=== PATIENT | female | born 1975 | race African-American/Black ===

== ENCOUNTER 2017-11-14 02:05 | Emergency (ER) | payer SELFPAY ==
[~2017-11-14] VITALS: Ht 154.9 cm; Wt 47.6 kg
[~2017-11-14 02:05] MED LIST: ALBU8.5H6 IH; BENZ100C PO; FLUT1DIS3 IH; GUAI600T47 PO; PRED20TA PO
--- NOTE | 2017-11-14 02:30 | ED.ADGEN ---
Past History Past Medical History: Asthma, COPD, Other Past Surgical History: , Tubal ligation Smoking: Greater than 1 pack/day Alcohol Use: Occasionally Drug Use: None Adult General Chief Complaint Chief Complaint " I ve had this spot since March of last year... I used to squeeze it... and it seemed to get better.. but this last two weeks it does not get better squeezing the stuff out... and nothing come s out now.. and it much more swollen.. and tender..." HPI HPI Patient is a 42 year old female who presents with above hx and complaints of Lt facial abscess. Area is 2 cm x 2 cm Lt facial area. Patient normally follows at [facility] for care. Patient does not remember last tetanus by her record she carries over the last one was in 1998. Patient denies any history immunosuppression. Patient denies any history of significant ill contacts. Patient has been squeezing area but has not been able to express any pus in the areas become more swollen and tender. No adenopathy at ankle jaw. Pt. not in waiting room, when pt. was to be taken back. Pt. reportedly had gone outside to smoke. 2:34 hrs. Pt. placed in Triage upon return, and then moved to Room 2 to drain abscess. Pt. skin was prepped with Betadine and in the process starting to drain abscess with one stick with 11 blade. Pt. demanded injection with lidocaine. Pt. then asked to discuss this with a nurse. Pt. stated she want to think about it again. Pt. then left the ED again. 3:42 hrs. to smoke again. Pt. never return after leaving to smoke again. Review of Systems Review of Systems Constitutional: Denies fever or chills [] Eyes: Denies change in visual acuity, redness, or eye pain [] HENT: Denies nasal congestion or sore throat [] Respiratory: Denies cough or shortness of breath [] Cardiovascular: No additional information not addressed in HPI [] GI: Denies abdominal pain, nausea, vomiting, bloody stools or diarrhea [] : Denies dysuria or hematuria [] Musculoskeletal: Denies back pain or joint pain [] Integument: Denies rash or skin lesions [] Neurologic: Denies headache, focal weakness or sensory changes [] Endocrine: Denies polyuria or polydipsia [] All other systems were reviewed and found to be within normal limits, except as documented in this note. Family History Family History Non contributory- Mother reportedly had a cancera "Inside" Current Medications Current Medications Current Medications Medications (Trade) Dose Ordered Sig/Yeny Start Time Stop Time Status Last Admin Dose Admin Bupivacaine HCl (Sensorcaine Mpf 0.5%) 30 ml 1X ONCE 11/14/17 04:00 11/14/17 04:02 DC Ceftriaxone Sodium (Rocephin Im) 1 gm 1X ONCE 11/14/17 04:00 11/14/17 04:02 DC Ketorolac Tromethamine (Toradol) 60 mg 1X ONCE 11/14/17 04:00 11/14/17 04:02 DC Lidocaine HCl 20 ml 1X ONCE 11/14/17 04:00 11/14/17 04:02 DC Tetanus/ Diphtheria Toxoids Adsorbed (Tenivac Vial) 0.5 ml ONCE ONCE 11/14/17 04:00 11/14/17 04:02 DC Trimethoprim/ Sulfamethoxazole (Bactrim Ds) 1 tab 1X ONCE 11/14/17 04:00 11/14/17 04:02 DC Allergies Allergies Allergies Coded Allergies Type Severity Reaction Last Updated Verified No Known Drug Allergies 11/14/17 No Physical Exam Physical Exam Constitutional: Well developed, well nourished, no acute distress, non-toxic appearance. [] HENT: Normocephalic, atraumatic, bilateral external ears normal, oropharynx moist, no oral exudates, nose normal. Abscess Lt facial as per HPI. Poor dentition. Eyes: PERRLA, EOMI, conjunctiva normal, no discharge. [] Neck: Normal range of motion, no tenderness, supple, no stridor. [] Cardiovascular:Heart rate regular rhythm, no murmur [] Lungs & Thorax: Bilateral breath sounds equal apex with few wheezes on auscultation [] Abdomen: Bowel sounds normal, soft, no tenderness, no masses, no pulsatile masses. [] Skin: Warm, dry, no erythema, no rash. [] Back: No tenderness, no CVA tenderness. [] Extremities: No tenderness, no cyanosis, no clubbing, ROM intact, no edema. [] Neurologic: Alert and oriented X 3, normal motor function, normal sensory function, no focal deficits noted. [] Psychologic: Affect very anxious, argumentative , demanding, judgement poor insight, mood normal. [] Current Patient Data Vital Signs Vital Signs Date Time Temp Pulse Resp B/P (MAP) Pulse Ox O2 Delivery O2 Flow Rate FiO2 11/14/17 03:10 97.7 91 20 99 Room Air EKG EKG [] Radiology/Procedures Radiology/Procedures [] Course & Med Decision Making Course & Med Decision Making Pertinent Labs and Imaging studies reviewed. (See chart for details). Pt. to follow up [facility]. Pt. never stayed to receive antibiotics or ID . Pt. [] Final Impression Final Impression 1. Abscess[]/ Cellulitis Problems: Dragon Disclaimer Dragon Disclaimer This electronic medical record was generated, in whole or in part, using a voice recognition dictation system. RAY BEARD MD Nov 14, 2017 02:30
[2017-11-14 03:10] VITALS: BP 126/79
[2017-11-14] MEDS ORDERED: SULF1TAB24 PO (03:23)
[2017-11-14] MEDS ORDERED: BACI28.34 TP (03:23)
[2017-11-14] MEDS ORDERED: LIDOCAINE 2% 20 ML VIAL. IJ ONE (04:00)
[2017-11-14] MEDS ORDERED: cefTRIAXone IM 1 GM VIAL IM ONE (04:00)
[2017-11-14] MEDS ORDERED: BUPIVACAINE MPF 0.5% 30 ML VIAL. SQ ONE (04:00)
[2017-11-14] MEDS ORDERED: TETANUS AND DIPHTHERIA TOX/PF 0.5 ML VIAL. VAX IM ONE (04:00)
[2017-11-14] MEDS ORDERED: KETOROLAC 60 MG/2 ML VIAL. IM ONE (04:00)
[2017-11-14] MEDS ORDERED: SMZ/TMP 800/160MG TABLET. PO ONE (04:00)
== END 2017-11-14 03:55 | disposition left against medical advice (07) ==
LOC: ER 02:05
DX: L02.01 Cutaneous abscess of face (principal); J44.9 Chronic obstructive pulmonary disease, unspecified; F17.210 Nicotine dependence, cigarettes, uncomplicated
CPT/HCPCS: 99282

== ENCOUNTER 2017-11-18 01:33 | Emergency (ER) | payer SELFPAY ==
[~2017-11-18 01:33] MED LIST changes: +BACI28.34 TP; +SULF1TAB24 PO
--- NOTE | 2017-11-18 01:52 | PHYS DOC ---
General Stated Complaint: FACE PROBLEM Time Seen by MD: 01:35 Problems: History of Present Illness Initial Comments Patient reportedly left from the waiting room prior after signing in. Was causing a disturbance in waiting room and after being asked to calm down left without being seen. Allergies: Coded Allergies: No Known Drug Allergies (Unverified , 11/14/17) Past Medical History Surgical History: noncontributory, other JEREMIE BARRETT DO Nov 18, 2017 01:52
== END 2017-11-18 01:35 | disposition home or self-care (01) ==
LOC: ER 01:33
DX: L02.01 Cutaneous abscess of face (principal); Z53.21 Procedure and treatment not carried out due to patient leaving prior to being seen by health care provider

== ENCOUNTER 2017-11-27 23:10 | Emergency (ER) | payer SELFPAY ==
[~2017-11-27] VITALS: Ht 154.9 cm; Wt 47.6 kg
--- NOTE | 2017-11-27 23:22 | PHYS DOC ---
General Chief Complaint: ASTHMA Stated Complaint: SOB Time Seen by MD: 23:14 Source: patient Exam Limitations: no limitations Problems: History of Present Illness Initial Comments 42-year-old female brought to the ED complaining of asthma symptoms. Patient states for the past weeks to a month or so she's had nonproductive cough , wheeze, and dyspnea on exertion. She uses Proventil and Advair and they have not been keeping her symptoms under control. She states that she is homeless and she "missed the [place] [facility] tonight" so she came for evaluation. She reports that she is trying to quit smoking cigarettes and she has cut down. Denies fever chills or myalgias, no chest pain nausea or vomiting. Follows at [facility] Timing/Duration: other Severity: moderate Modifying Factors: improves with medication, worse with movement, improves with rest Associated Symptoms: cough, shortness of breath Allergies: Coded Allergies: No Known Drug Allergies (Unverified , 11/14/17) Past Medical History Medical History: asthma, COPD Surgical History: noncontributory, other Social History Smoker: cigarettes Alcohol: none Drugs: none Review of Systems Constitutional: denies chills, denies diaphoresis, denies fever, denies malaise Respiratory: see HPI Cardiovascular: denies chest pain, denies palpitations, denies syncope Gastrointestinal: denies diarrhea, denies nausea, denies vomiting Musculoskeletal: denies back pain, denies joint swelling, denies neck pain Psychiatric/Neurological: denies headache, denies numbness, denies paresthesia Hematologic/Lymphatic: denies blood clots, denies easy bleeding, denies easy bruising Physical Exam General Appearance: no apparent distress Eyes: bilateral eye PERRL, bilateral eye EOMI, bilateral eye other ( conjunctivae injected bilaterally) Ear, Nose, Throat: hearing grossly normal, normal ENT inspection Neck: non-tender, supple Respiratory: chest non-tender, no respiratory distress, decreased breath sounds , wheezing Cardiovascular: normal peripheral pulses, regular rate, rhythm Back: no CVA tenderness, no vertebral tenderness Extremities: non-tender, normal inspection 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 Hyperinflation, interpreted by me. I-STAT troponin 0.01, i-STAT BMP unremarkable 0023: Patient feeling much better after Solu-Medrol 125 mg IV and DuoNeb treatment. I have secured a bed for her at the [facility] [place] [facility], she states that she's feeling much better and wishes to leave. Discussed signs and symptoms to monitor as well as indications for urgent return to the department. Discussed [id number] prescription medications as well as smoking cessation. Her questions were answered and she was discharged home in improved condition. Departure Time of Disposition: 00:24 Disposition: 01 HOME, SELF-CARE Diagnosis: asthma exacerbation, tobaccoism Condition: IMPROVED Patient Instructions: Smoking Cessation, Tips For Success Additional Instructions: Stop smoking seek medical assistance if necessary. Use the albuterol inhaler dispensed in ED: 2 puffs every 4 hours and as needed Prescription: Prednisone 20 mg quantity 5 Follow-up at [facility] in 5-7 days for recheck. Return to ED with new or changing symptoms. JEREMIE BARRETT DO Nov 27, 2017 23:22
[2017-11-27] MEDS ORDERED: IPRATRPIUM/ALBUTEROL 0.5/2.5MG 3 ML NEBU. NEB ONE (23:30)
[2017-11-27] MEDS ORDERED: methylPREDNISolone SOD SUCC PF 125 MG/2 ML VIAL. IV ONE (23:30)
[2017-11-28] MEDS ORDERED: PRED20TA PO (00:22)
[2017-11-28 00:34] VITALS: BP 127/77
[2017-11-28] MEDS ORDERED: ALBUTEROL SULFATE 8GM INHALER. INH ONE (01:00)
--- NOTE | 2017-11-28 07:23 | RAD ---
2 view CXR: Clinical indications: Asthma. Cough. Congestion. Comparison: February 15, 2015 Findings: Hyperinflation is seen consistent with COPD. No acute lung infiltrate or pleural effusion or pulmonary edema or lung mass or pneumothorax is seen. The heart size, pulmonary vasculature, mediastinum and both soni are unremarkable. The osseous structures appear intact. Impression: No acute radiographic abnormality is seen. COPD.
[2017-11-28 07:57] LABS: HEMOGLOBIN ISTAT 13.6 gm/dL; POTASSIUM ISTAT 3.7 mmol/L (3.5-5.0)
== END 2017-11-28 00:35 | disposition home or self-care (01) ==
LOC: ER 23:10
DX: J45.901 Unspecified asthma with (acute) exacerbation (principal); F17.210 Nicotine dependence, cigarettes, uncomplicated; J44.9 Chronic obstructive pulmonary disease, unspecified
CPT/HCPCS: 36415; 71046; 80047; 84484; 85014; 85018; 94640; 96374; 99284; J2930; J7613; J7620; 94664

== ENCOUNTER 2018-05-02 10:28 | Emergency (ER) | payer SELFPAY ==
[~2018-05-02] VITALS: Ht 154.9 cm; Wt 100.0 kg
[2018-05-02 10:30] VITALS: BP 115/78
[2018-05-02 11:16] LABS: BASO # 0.1 x10^3/uL (0.0-0.2); BASO % 1 % (0-3); EOS # 0.3 x10^3/uL (0.0-0.7); EOS % 4 % (0-3); HEMATOCRIT 38.7 % (36.0-47.0); HEMOGLOBIN 13.2 g/dL (12.0-15.5); LYMPH # 1.3 x10^3/uL (1.0-4.8); LYMPH % 20 % (24-48); MEAN CORPUSCULAR HEMOGLOBIN 32 pg (25-35); MEAN CORPUSCULAR HGB CONC 34 g/dL (31-37); MEAN CORPUSCULAR VOLUME 94 fL (79-100); MONO # 0.5 x10^3/uL (0.0-1.1); MONO % 8 % (0-9); NEUT # 4.2 x10^3uL (1.8-7.7); NEUT % 67 % (31-73); PLATELET COUNT 506 x10^3/uL (140-400); RED CELL DISTRIBUTION WIDTH 13.5 % (11.5-14.5); WHITE BLOOD COUNT 6.2 x10^3/uL (4.0-11.0)
--- NOTE | 2018-05-02 11:18 | PHYS DOC ---
Past History Past Medical History: Asthma, COPD, Other Past Surgical History: , Tubal ligation Smoking: Greater than 1 pack/day Alcohol Use: Occasionally Drug Use: None Adult General Chief Complaint Chief Complaint: ASTHMA HPI HPI Patient is a 43-year-old female who presents with complaint of shortness of breath and anxiety. Patient also indicates that she has had a mild cough. Patient states that she has noticed abnormal odor to her breath. Patient asking why she is not having blood work drawn and breathing treatment at this time. Patient refused to answer additional questions. Initially, upon my arrival in the room, patient had TV turned on with volume loud. I had turned volume down, indicating that I would need to hear the patient speaking and patient turned volume back up. Patient very oppositional during history and physical taking. Review of Systems Review of Systems Constitutional: Denies fever or chills [] Respiratory: Complains of cough, wheezing and shortness of breath[] Cardiovascular: Denies chest pain[] GI: Denies abdominal pain, nausea, vomiting [] : Denies dysuria or hematuria [] Additional history is limited due to patient being very poor historian, not cooperating with H&P. Current Medications Current Medications Current Medications Medications (Trade) Dose Ordered Sig/Yeny Start Time Stop Time Status Last Admin Dose Admin Albuterol Sulfate (Ventolin) 2.5 mg 1X ONCE 05/02/18 11:30 05/02/18 11:31 Allergies Allergies Allergies Coded Allergies Type Severity Reaction Last Updated Verified No Known Drug Allergies 11/14/17 No Physical Exam Physical Exam Constitutional: Well developed, well nourished, no acute distress, non-toxic appearance. [] HENT: Normocephalic, atraumatic, bilateral external ears normal, oropharynx moist, no oral exudates, nose normal. [] Eyes: PERRLA, EOMI, conjunctiva normal, no discharge. [] Neck: Normal range of motion, no tenderness, supple, no stridor. [] Cardiovascular:Heart rate regular rhythm, no murmur [] Lungs & Thorax: Very fine end expiratory wheezes are noted with good air movement throughout[] Abdomen: Bowel sounds normal, soft, no tenderness. [] Skin: Warm, dry, no erythema, no rash. [] Extremities: No tenderness, no cyanosis, no clubbing, ROM intact, no edema. [] Neurologic: Alert and oriented X 3, normal motor function, normal sensory function, no focal deficits noted. [] Current Patient Data Vital Signs Vital Signs Date Time Temp Pulse Resp B/P (MAP) Pulse Ox O2 Delivery O2 Flow Rate FiO2 05/02/18 10:30 98.1 100 18 100 Room Air EKG EKG [] Radiology/Procedures Radiology/Procedures [] Course & Med Decision Making Course & Med Decision Making Pertinent Labs and Imaging studies reviewed. (See chart for details) [] Dragon Disclaimer Dragon Disclaimer This electronic medical record was generated, in whole or in part, using a voice recognition dictation system. Departure Departure: Impression: Primary Impression: Dyspnea Disposition: 07 AGAINST MEDICAL ADVICE Condition: GOOD Referrals: PCP,NO (PCP) Problem Qualifiers Primary Impression: Dyspnea Dyspnea type: unspecified Qualified Codes: R06.00 - Dyspnea, unspecified HERNANDO BOLIVAR Jr. DO May 02, 2018 11:18
[2018-05-02 11:30] LABS: ALBUMIN 3.7 g/dL (3.4-5.0); ALBUMIN/GLOBULIN RATIO 1.1 (1.0-1.7); CALCIUM 8.9 mg/dL (8.5-10.1); CREATININE 0.7 mg/dL (0.6-1.0); GFR 109.5; POTASSIUM 3.6 mmol/L (3.5-5.1); TOTAL BILIRUBIN 0.7 mg/dL (0.2-1.0); TOTAL PROTEIN 7.2 g/dL (6.4-8.2)
[2018-05-02] MEDS ORDERED: ALBUTEROL SULFATE 2.5 MG/3 ML NEBU. NEB ONE (11:30)
--- NOTE | 2018-05-03 06:39 | EKG ---
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
[2018-05-03] MEDS ORDERED: PRED50TA PO (18:29)
== END 2018-05-02 11:14 | disposition left against medical advice (07) ==
LOC: ER 10:28
DX: R06.00 Dyspnea, unspecified (principal); J44.9 Chronic obstructive pulmonary disease, unspecified; F41.9 Anxiety disorder, unspecified; F17.200 Nicotine dependence, unspecified, uncomplicated
CPT/HCPCS: 36415; 80053; 85025; 93005; 99285-25

== ENCOUNTER 2018-05-03 17:06 | Emergency (ER) | payer SELFPAY ==
[2018-05-02 10:30] VITALS: BP 115/78
[~2018-05-03] VITALS: Ht 162.6 cm; Wt 54.4 kg
[2018-05-03] MEDS ORDERED: IPRATRPIUM/ALBUTEROL 0.5/2.5MG 3 ML NEBU. ONE (17:54)
[2018-05-03] MEDS ORDERED: IPRATRPIUM/ALBUTEROL 0.5/2.5MG 3 ML NEBU. NEB ONE (18:00)
--- NOTE | 2018-05-03 18:23 | PHYS DOC ---
Past History Past Medical History: Asthma, COPD Past Surgical History: No Surgical History Smoking: Greater than 1 pack/day Additional Smoking Information: 1 PPD "when i can afford it" Alcohol Use: Occasionally Additional Alcohol Information: "when I can afford it" Drug Use: None Adult General Chief Complaint Chief Complaint: SHORTNESS OF BREATH HPI HPI 43-year-old female with a history of COPD presents with shortness of breath. She states that she was in this ED yesterday but "no one helped me" so I left. Today she states that she is feeling short of breath despite taking her albuterol MDI, Anoro, and Singulair. She does not always take her Anora, but has been for 3-4 days. She denies fever, cough, chest pain, congestion. She does not remember the last time she had a COPD exacerbation. She continues to smoke. Review of Systems Review of Systems Constitutional: Denies fever or chills [] Eyes: Denies change in visual acuity, redness, or eye pain [] HENT: Denies nasal congestion or sore throat [] Respiratory: Shortness of breath [] Cardiovascular: No additional information not addressed in HPI [] GI: Denies abdominal pain, nausea, vomiting, bloody stools or diarrhea [] : Denies dysuria or hematuria [] Musculoskeletal: Denies back pain or joint pain [] Integument: Denies rash or skin lesions [] Neurologic: Denies headache, focal weakness or sensory changes [] Endocrine: Denies polyuria or polydipsia [] All other systems were reviewed and found to be within normal limits, except as documented in this note. Current Medications Current Medications Current Medications Medications (Trade) Dose Ordered Sig/Yeny Start Time Stop Time Status Last Admin Dose Admin Albuterol/ Ipratropium (Duoneb) 3 ml 1X ONCE 05/03/18 18:00 05/03/18 18:01 DC 05/03/18 17:57 3 ML Allergies Allergies Allergies Coded Allergies Type Severity Reaction Last Updated Verified No Known Drug Allergies 11/14/17 No Physical Exam Physical Exam Constitutional: Well developed, well nourished, no acute distress, non-toxic appearance. [] HENT: Normocephalic, atraumatic, bilateral external ears normal, oropharynx moist, no oral exudates, nose normal. [] Eyes: PERRLA, EOMI, conjunctiva normal, no discharge. [] Neck: Normal range of motion, no tenderness, supple, no stridor. [] Cardiovascular:Heart rate regular rhythm, no murmur [] Lungs & Thorax: Bilateral breath sounds decreased. Very mild wheezing in right base. [] Abdomen: Bowel sounds normal, soft, no tenderness, no masses, no pulsatile masses. [] Skin: Warm, dry, no erythema, no rash. [] Back: No tenderness, no CVA tenderness. [] Extremities: No tenderness, no cyanosis, no clubbing, ROM intact, no edema. [] Neurologic: Alert and oriented X 3, normal motor function, normal sensory function, no focal deficits noted. [] Psychologic: Affect normal, judgement normal, mood normal. [] Current Patient Data Vital Signs Vital Signs Date Time Temp Pulse Resp B/P (MAP) Pulse Ox O2 Delivery O2 Flow Rate FiO2 05/03/18 18:00 97 Room Air 05/03/18 17:35 98.2 118 16 EKG EKG [] Radiology/Procedures Radiology/Procedures [] Course & Med Decision Making Course & Med Decision Making Pertinent Labs and Imaging studies reviewed. (See chart for details) We'll treat the patient for COPD exacerbation. I'll give her 125 of Solu-Medrol in the ED followed by 3 days of prednisone 50 mg. I will also give her an MDI inhaler to go home. She is stable for discharge at this time. [] Dragon Disclaimer Dragon Disclaimer This electronic medical record was generated, in whole or in part, using a voice recognition dictation system. Departure Departure: Referrals: PCP,DORIAN (PCP) Scripts Prednisone (PREDNISONE) 50 Mg Tablet 1 TAB PO DAILY for 3 Days, #3 TAB Prov: KACIE MURILLO DO 05/03/18 KACIE MURILLO DO May 03, 2018 18:23
[2018-05-03] MEDS ORDERED: PRED50TA PO (18:29)
[2018-05-03] MEDS ORDERED: methylPREDNISolone SOD SUCC PF 125 MG/2 ML VIAL. IM ONE (18:45)
[2018-05-03] MEDS ORDERED: ALBUTEROL SULFATE 8GM INHALER. INH ONE (18:45)
== END 2018-05-03 18:59 | disposition home or self-care (01) ==
LOC: ER 17:06
DX: J44.1 Chronic obstructive pulmonary disease with (acute) exacerbation (principal); F17.200 Nicotine dependence, unspecified, uncomplicated
CPT/HCPCS: 94640; 96372; 99284; J2930; J7613; J7620; 94664